=== PATIENT | male | born 1960 | race Caucasian/White ===

== ENCOUNTER 2019-02-26 10:55 | Emergency (ER) | payer OTHER ==
[~2019-02-26] VITALS: Ht 175.3 cm; Wt 68.0 kg
[2019-02-26 11:10] VITALS: BP 143/81
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
[2019-02-26 11:46] VITALS: BP 132/78
--- NOTE | 2019-02-26 11:48 | NUR ---
ER DISCHARGE NOTE: Patient is cleared to be discharged per ERMD, pt is aox4, on room air, with stable vital signs. pt was given dc and prescription instructions, pt was able to verbalize understanding, pt id band removed without complications. pt is able to ambulate with steady gait. pt took all belongings.
== END 2019-02-26 11:45 | disposition home or self-care (01) ==
LOC: EMR 11:40
DX: S60.211A Contusion of right wrist, initial encounter (principal); R20.2 Paresthesia of skin; S54.21XA Injury of radial nerve at forearm level, right arm, initial encounter; V19.9XXA Pedal cyclist (driver) (passenger) injured in unspecified traffic accident, initial encounter; Y92.9 Unspecified place or not applicable
CPT/HCPCS: 29130; 99283